=== PATIENT | female | born 1970 | race Caucasian/White ===

== ENCOUNTER 2017-03-14 18:05 | Emergency (ER) | payer OTHER ==
[~2017-03-14] VITALS: Ht 162.6 cm; Wt 93.0 kg
[~2017-03-14 18:05] MED LIST: FLOVENT 11120 INHALA IH; LISINOPRIL-HCT1 EACH PO; MICROZIDE12.5 MG PO; NASACORT AQ16.5 GM NS; REFRESH EYE DR1 EACH OP
[2017-03-14 20:09] VITALS: BP 148/92
== END 2017-03-14 20:10 | disposition home or self-care (01) ==
LOC: EME 18:05
DX: S93.402A Sprain of unspecified ligament of left ankle, initial encounter (principal); W10.9XXA Fall (on) (from) unspecified stairs and steps, initial encounter; Y92.008 Other place in unspecified non-institutional (private) residence as the place of occurrence of the external cause; I10 Essential (primary) hypertension; Z91.040 Latex allergy status; Z88.2 Allergy status to sulfonamides; Z88.6 Allergy status to analgesic agent
CPT/HCPCS: 73610; 99281; 99283